=== PATIENT | female | born 1955 | race Caucasian/White ===

== ENCOUNTER 2023-08-20 12:04 | Emergency (ER) | payer MEDICARE, MEDICAID ==
[~2023-08-20] VITALS: Ht 170.2 cm; Wt 55.3 kg
[2023-08-20 12:53] LABS: BASOPHILS % (AUTO) 0.8 % (0.0-2.0); EOSINOPHILS # (AUTO) 0.1 K/uL (0.0-0.7); EOSINOPHILS % (AUTO) 1.5 % (0.0-7.0); HEMATOCRIT 41.4 % (31.2-41.9); HEMOGLOBIN 13.6 g/dL (10.9-14.3); LYMPHOCYTES # (AUTO) 1.5 K/uL (0.8-4.8); LYMPHOCYTES % (AUTO) 27.2 % (20.5-51.5); MEAN CORPUSCULAR HEMOGLOBIN 31.6 uug (24.7-32.8); MEAN CORPUSCULAR HGB CONC 33 g/dL (32.3-35.6); MEAN CORPUSCULAR VOLUME 95.9 fL (75.5-95.3); MONOCYTES # (AUTO) 0.5 K/uL (0.1-1.30); MONOCYTES % (AUTO) 8.6 % (0.0-11.0); NEUTROPHILS # (AUTO) 3.5 K/uL (1.8-8.9); NEUTROPHILS % (AUTO) 61.9 % (38.5-71.5); PLATELET COUNT (AUTO) 287 K/uL (179-408); RED BLOOD CELL COUNT(AUTO) 4.32 MIL/uL (3.63-4.92); RED CELL DISTRIBUTION WIDTH 13.2 % (12.3-17.7); WHITE BLOOD COUNT (AUTO) 5.7 K/uL (3.8-11.8)
[2023-08-20 12:57] LABS: DIFFERENTIAL COMMENT 1
[2023-08-20 13:01] LABS: CALCIUM 9.3 mg/dL (8.5-10.1); CREATININE 0.6 mg/dL (0.6-1.3); MAGNESIUM 2.2 mg/dL (1.8-2.4); POTASSIUM 4.3 mmol/L (3.5-5.1)
[2023-08-20] MEDS ORDERED: IOHEXOL 300MG/ML 100 ML INFUS..BTL ONE (13:15)
[2023-08-20] MEDS ORDERED: IV NORMAL SALINE 250 ML IV ONE (13:15)
[2023-08-20] MEDS ORDERED: SWABABLE VALVE TRANSFER SET EA MC ONE (13:15)
[2023-08-20] MEDS ORDERED: ACET1TAB23 PO (14:46)
[2023-08-20] MEDS ORDERED: PRED50TA PO (14:46)
[2023-08-20] MEDS ORDERED: HYDROCODONE/APAP 5-325MG TABLET ONE (15:02)
[2023-08-20] MEDS: HYDROCODONE/APAP 5-325MG TABLET PO ONE (15:09)
[2023-08-20 15:25] VITALS: BP 151/85; TEMP 98.3; O2SAT 95
== END 2023-08-20 15:34 | disposition home or self-care (01) ==
LOC: ER 12:06
DX: M54.12 Radiculopathy, cervical region (principal); E03.9 Hypothyroidism, unspecified
CPT/HCPCS: 99285; 72126; 80048; 83735; 85025; 84484; 36415; Q9967; A4606; A4663

== ENCOUNTER 2024-08-27 19:23 | Emergency (ER) | payer OTHER ==
[~2024-08-27] VITALS: Ht 170.2 cm; Wt 54.4 kg
[~2024-08-27 19:23] MED LIST: ACET1TAB23 PO; PRED50TA PO
[2024-08-27] MEDS ORDERED: ONDANSETRON ODT 4 MG TAB.RAPDIS ONE (19:56)
[2024-08-27] MEDS ORDERED: HYDROCODONE/APAP 10-325 MG TABLET ONE (19:57)
[2024-08-27] MEDS: HYDROCODONE/APAP 10-325 MG TABLET PO ONE (20:01)
[2024-08-27] MEDS: ONDANSETRON ODT 4 MG TAB.RAPDIS SL ONE (20:01)
[2024-08-27] MEDS ORDERED: ONDA4TAB11 PO (21:52)
[2024-08-27] MEDS ORDERED: HYDR-3980 PO (21:52)
[2024-08-27 22:35] VITALS: BP 99/82; TEMP 97.9; O2SAT 92
== END 2024-08-27 22:35 | disposition home or self-care (01) ==
LOC: ER 19:23
DX: S93.691A Other sprain of right foot, initial encounter (principal); S00.83XA Contusion of other part of head, initial encounter; E03.9 Hypothyroidism, unspecified; F32.A Depression, unspecified; Z79.52 Long term (current) use of systemic steroids; V43.52XA Car driver injured in collision with other type car in traffic accident, initial encounter; Y93.89 Activity, other specified; Y92.488 Other paved roadways as the place of occurrence of the external cause; Y99.8 Other external cause status
CPT/HCPCS: 73630; 73700; A4606; A4663; Q0162